=== PATIENT | female | born 1965 | race Hispanic/Latino ===

== ENCOUNTER 2020-05-08 08:57 | Inpatient (IN) | payer BC, SELFPAY ==
[2020-05-08] MEDS ORDERED: ONDANSETRON 4 MG/2 ML INJ IV PRN (09:31)
[2020-05-08] MEDS ORDERED: HYDROmorphone 1 MG/1 ML INJ IV PRN (09:31)
--- NOTE | 2020-05-08 09:32 | Anesthesia Day of Surgery ---
Anesthesia Day of Surgery - Day of Surgery Patient Examined: Yes Patient H&P Reviewed: Yes Patient is NPO: Yes
[2020-05-08] MEDS ORDERED: BACTERIOSTATIC SODIUM CHLORIDE 0.9% 30 ML VIAL INFILTRATI ONE (09:33)
--- NOTE | 2020-05-08 09:38 | Anesthesia Consultation ---
Anesthesia Consult and Med Hx Date of service: 05/08/20 - Airway Anesthetic Teeth Evaluation: Crowns ROM Head & Neck: Adequate Mental/Hyoid Distance: Adequate Mallampati Class: Class II Intubation Access Assessment: Good - Pre-Operative Health Status ASA Pre-Surgery Classification: ASA2 Proposed Anesthetic Plan: General - Pre-Anesthesia Comment Pre-Anesthesia Comments: PONV once - Pulmonary Hx Smoking: Yes (STOPPED 2002) Hx Respiratory Symptoms: No (+2FS) Hx Sleep Apnea: No (PATRICIA PRE SCREEN LOW RISK) - Cardiovascular System Hx Hypertension: No Hx Heart Murmur: No - Central Nervous System Hx Back Pain: Yes (NECK AND BACK PAIN) Hx Psychiatric Problems: Yes (Anxiety/Depression) - Gastrointestinal Hx Gastroesophageal Reflux Disease: Yes - Endocrine Hx Renal Disease: Yes (Stones) Hx Liver Disease: Yes (Fatty liver) Hx Insulin Dependent Diabetes: Yes (Type 1 on Insulin pump) - Hematic Hx Anemia: No - Other Systems Hx Alcohol Use: Yes (OCCASIONALLY) Hx Substance Use: No Hx Cancer: No - Additional Comments Anesthesia Medical History Comments: Diabetic retinopathy
[2020-05-08] MEDS: LACTATED RINGERS 1,000 ML IV SCH (10:00)
[2020-05-08] MEDS ORDERED: FAMOTIDINE 20 MG TAB PO NR (10:00)
[2020-05-08] MEDS ORDERED: ceFAZolin/STERILE WATER 2 GM/20 ML SYRINGE IV NR (10:00)
[2020-05-08] MEDS ORDERED: MIDAZOLAM 2 MG/2 ML INJ IV NR ×2 (10:00→13:23)
[2020-05-08] MEDS ORDERED: ONDANSETRON 4 MG/2 ML INJ ONE (10:42)
[2020-05-08] MEDS ORDERED: propofoL 200 MG/20 ML VIAL IV ONE (10:42)
[2020-05-08] MEDS ORDERED: LIDOCAINE MPF (2%) 20 MG/1 ML VIAL 5 ML ONE (10:42)
[2020-05-08] MEDS ORDERED: fentaNYL 100 MCG/2 ML INJ ONE ×2 (10:42→17:57)
[2020-05-08] MEDS ORDERED: PHENYLEPHRINE/NS 1,000 MCG/10 ML SYRINGE (OR USE) IV ONE (10:42)
[2020-05-08] MEDS ORDERED: dexAMETHasone 20 MG/5 ML VIAL ONE (10:42)
[2020-05-08] MEDS ORDERED: GLYCOPYRROLATE 0.4 MG/2 ML INJ ONE ×2 (10:42→11:00)
[2020-05-08] MEDS ORDERED: ROCURONIUM 50 MG/5 ML INJ IV ONE (11:00)
[2020-05-08] MEDS ORDERED: NEOSTIGMINE 10MG/10 ML INJ MDV ONE (11:00)
[2020-05-08] MEDS ORDERED: LIDOCAINE 2% UROJECT 10 ML JELLY ONE (11:25)
[2020-05-08] MEDS ORDERED: IOHEXOL 300 MG/ML 50ML IV ONE (11:39)
[2020-05-08] MEDS ORDERED: WATER FOR IRRIG STERILE 2000 ML IR ONE (11:40)
--- NOTE | 2020-05-08 12:21 | Post Operative Note ---
Date of procedure: 05/08/20 Pre-op diagnosis: r upper stone stricture Post-op diagnosis: same Procedure: cysto ureteroscopy attemptrd stent Anesthesia: PATRICK Surgeon: ZOHAIB CUNNINGHAM Estimated blood loss: none Pathology: none Condition: stable Disposition: PACU
[2020-05-08] MEDS: HYDROmorphone 1 MG/1 ML INJ IV PRN ×4 (12:45→13:15)
--- NOTE | 2020-05-08 12:47 | Event Note ---
Date: 05/08/20 Contacted regarding need for possible nephrostomy tube and ureteral stent placed through an antegrade approach. Ordered CT scan of the abdomen pelvis without contrast. I will discuss with patient when she wakes up.
[2020-05-08] MEDS ORDERED: MORPHINE 2 MG/1 ML INJ ONE ×3 (13:15→13:31)
[2020-05-08] MEDS: MORPHINE 2 MG/1 ML INJ IV PRN ×3 (13:20→13:40)
[2020-05-08] MEDS: MORPHINE 4 MG/1 ML INJ IV PRN ×3 (14:00→15:30)
--- NOTE | 2020-05-08 14:19 | Cat Scan Report ---
CT ABDOMEN AND PELVIS WITHOUT CONTRAST INDICATION / CLINICAL INFORMATION: hydronephrosis, possible PCN/ureteral stent. TECHNIQUE: Axial CT images were obtained through the abdomen and pelvis without IV contrast. All CT scans at this location are performed using CT dose reduction for ALARA by means of automated exposure control. COMPARISON: None available. FINDINGS: LOWER CHEST: Bibasilar volume loss. LIVER: No significant abnormality GALLBLADDER/BILIARY TREE: No significant abnormality PANCREAS: No significant abnormality SPLEEN: No significant abnormality ADRENALS: No significant abnormality RIGHT KIDNEY: There is residual contrast and gas within the right renal collecting system/ureter with moderate hydronephrosis. 5 mm calcification is demonstrated within the proximal right ureter. LEFT KIDNEY: 5 mm and 3 mm calculi are present within the left renal calyces. No ureteral calculus or hydronephrosis. URINARY BLADDER: There is gas within the bladder related to recent instrumentation. Bladder is not fu rther characterized due to decompression. REPRODUCTIVE ORGANS: Postoperative changes of tubal ligation. There is endometrial fluid/thickening, which may be physiologic. STOMACH / SMALL BOWEL: Stomach and small bowel are normal in caliber. No evidence of bowel inflammati on. COLON: The colon is unremarkable. The appendix is normal in caliber. LYMPH NODES: No significant adenopathy. VASCULATURE: Mild atherosclerotic calcification without acute abnormality. OTHER: No free air, free fluid, or focal fluid collection is identified. SKELETAL SYSTEM: No acute osseous findings. IMPRESSION: 1. Residual contrast and gas within the right renal collecting system/ureter with moderate hydronephr osis and 5 mm stone in the proximal right ureter. No additional ureteral calculus is detected. 2. Left nephrolithiasis without ureteral calculus or hydronephrosis. 3. Endometrial fluid/thickening, which may be physiologic. Recommend correlation with patient's menst rual status and consider further evaluation with pelvic ultrasound, as indicated. Signer Name: Ruben Henson MD Signed: 05/08/2020 2:14 PM Workstation Name: [id number]
--- NOTE | 2020-05-08 14:40 | Fluoroscopy Report ---
Right retrograde ureterogram INDICATION: Right flank pain IMPRESSION: Multiple fluoroscopic images were obtained following cannulation of the right ureter with postcontrast injection. No leak identified. Fluoroscopy time: 5.2 minutes. Fluoroscopic images: 9. Signer Name: Tanner Cerrato MD Signed: 05/08/2020 2:35 PM Workstation Name: [id number]
[2020-05-08] MEDS ORDERED: MORPHINE 4 MG/1 ML INJ IV PRN (14:57)
--- NOTE | 2020-05-08 15:23 | Operative Report ---
PREOPERATIVE DIAGNOSIS: Right upper ureteral stone. POSTOPERATIVE DIAGNOSES: Right upper ureteral stone with distal ureteral narrowing. PROCEDURES: Cystoscopy, right retrograde attempted stent, right ureteroscopy. SURGEON: Dr. Delgado. ANESTHESIA: General. FINDINGS: This is a woman with severe pain, right flank. Stone was not well seen on x-ray and looks quite small. She now presents for treatment. DESCRIPTION OF PROCEDURE: The patient was brought to the operating room and placed in the operating table. Following induction of anesthesia, placed in lithotomy position, prepped and draped in the usual sterile fashion. Cystourethroscopy showed no bladder lesions. Retrograde showed a tortuous ureter at the level of the stone with almost 2 twists. We were able to get a stent and straighten out the ureter surprisingly. We were able to get the ureteral access inner core to straighten it out and placed 2 wires in the kidney. The stone was quite high, so there was not that much wire above the stone. At this point, we took one wire over the ureteroscope and we were able to see the stone. We were about to start lasering and we saw that the other wire migrated a little distally. The ureter almost snapped to a twist. We could not see the stone anymore. It was almost like there was a pocket. It was not safe to keep pushing. We tried to inject dye to see if it would open up, but the ureter almost twisted like a turn. We therefore then stopped the procedure. I spoke to ____, I think the safest thing would be a percutaneous nephrostomy and placed it from above because the ureter twisted closed and no dye even would get above it. There was no extravasation. We did not want to perforate. I showed the pictures to the on the CD and he understands and I think the safest thing is to place an antegrade stent and let this grow off and then we can go back and laser the stone. PLAN: We will get a CT scan and a nephrostomy tube. JOB# [id number] MEGAN/ANGELA
[2020-05-08 15:55] LABS: Basophils % (Auto) 0.3 % (0.0-1.8); Eosinophils % (Auto) 0.2 % (0.0-4.3); Hematocrit 37.5 % (30.3-42.9); Hemoglobin 12.8 gm/dl (10.1-14.3); Lymphocytes # (Auto) 0.8 K/mm3 (1.2-5.4); Lymphocytes % (Auto) 8.2 % (13.4-35.0); Mean Corpuscular HGB Conc 34 % (30-34); Mean Corpuscular Volume 96 fl (79-97); Monocytes # (Auto) 0.5 K/mm3 (0.0-0.8); Monocytes % (Auto) 5.5 % (0.0-7.3); Platelet Count 299 K/mm3 (140-440); Red Blood Count 3.93 M/mm3 (3.65-5.03); Red Cell Distribution Width 13.7 % (13.2-15.2)
[2020-05-08 16:07] LABS: Partial Thromboplastin Time 26.9 Sec. (24.2-36.6)
[2020-05-08 16:09] LABS: Blood Urea Nitrogen 10 mg/dL (7-17); Calcium 8.7 mg/dL (8.4-10.2); Hemolysis Index 3
[2020-05-08 16:13] LABS: BUN/Creatinine Ratio 14
[2020-05-08] MEDS ORDERED: SODIUM CHLORIDE IRRI 500 ML 500 ML IR ONE (16:18)
[2020-05-08] MEDS ORDERED: LIDOCAINE (2%) 20 MG/1 ML VIAL 20 ML MDV INFILTRATI ONE (16:19)
--- NOTE | 2020-05-08 17:01 | Consultation ---
History of Present Illness - Reason for Consult Consult date: 05/08/20 Right hydronephrosis Requesting physician: ZOHAIB CUNNINGHAM - History of Present Illness 55-year-old female with past medical history of renal calculi who underwent an attempted ureteral stent placement and attempted laser removal of the right ureteral obstructing stone. Unfortunately the procedure could not be completed due to inability to wire past the occlusive stone after the initial passage across the occlusive stone. Patient has severe right flank pain. Discussed nephrostomy tube placement with possible ureteral stent with both her and her over the phone. Past medical history and social history: Hx Smoking: Yes (STOPPED 2002) Hx Respiratory Symptoms: No (+2FS) Hx Sleep Apnea: No (PATRICIA PRE SCREEN LOW RISK) Hx Hypertension: No Hx Heart Murmur: No Hx Back Pain: Yes (NECK AND BACK PAIN) Hx Psychiatric Problems: Yes (Anxiety/Depression) Hx Gastroesophageal Reflux Disease: Yes Hx Renal Disease: Yes (Stones) Hx Liver Disease: Yes (Fatty liver) Hx Insulin Dependent Diabetes: Yes (Type 1 on Insulin pump) Hx Anemia: No Hx Alcohol Use: Yes (OCCASIONALLY) Hx Substance Use: No Hx Cancer: No History Comments: Diabetic retinopathy Past History Social history: smoking (History of) Family history: no significant family history Medications and Allergies Allergies Allergy/AdvReac Type Severity Reaction Status Date / Time atorvastatin [From Lipitor] Allergy MUSCLE PAIN Verified 05/05/20 17:40 ezetimibe [From Zetia] Allergy JOINT PAIN Verified 05/05/20 17:40 meperidine [From Demerol] Allergy AGITATION Verified 05/05/20 17:40 , HALLUCINATIONS Home Medications Medication Instructions Recorded Confirmed Last Taken Type Ibuprofen [Motrin] 1 - 4 mg PO Q6H PRN 10/13/15 05/05/20 10/13/15 History Insulin Aspart (Nf) [NovoLOG 100 45 - 50 units SUB-Q CONT 10/13/15 05/08/20 05/07/20 21:30 History UNITS/ML VIAL] Sertraline HCl 100 mg PO DAILY 10/13/15 05/08/20 05/07/20 09:00 History Tamsulosin [Flomax] 0.4 mg PO QDAY 10/13/15 05/08/20 05/07/20 21:00 History Ascorbic Acid [Vitamin C] 500 mg PO DAILY 03/07/2105/08/20 05/07/20 09:00 History Cholecalciferol Vit D3 [Vitamin D3 1,000 unit PO QDAY 05/05/20 05/08/20 05/07/20 09:00 History 1,000 UNIT TAB] Famotidine [Pepcid] 20 mg PO PRN PRN 05/05/20 05/08/20 05/07/20 09:00 History HYDROcodone/APAP 7.5-325 [Brady 1 each PO Q6HR PRN 05/05/20 05/08/20 05/07/20 21:30 History 7.5/325] Ondansetron HCl [Zofran] 4 mg PO PRN PRN 05/05/20 05/08/20 05/07/20 21:30 History cefUROXime [Ceftin] 250 mg PO Q12H 05/05/20 05/08/20 05/07/20 21:00 History Active Meds: Active Medications Cefazolin Sodium (Cefazolin/Sterile Water 2 Gm/20 Ml Syringe) 2 gm IV PREOP NR Stop: 05/08/20 21:00 Famotidine (Famotidine 20 Mg Tab) 20 mg PO PREOP NR Stop: 05/08/20 20:00 Last Admin: 05/08/20 10:00 Dose: 20 mg Documented by: Hydromorphone HCl (Hydromorphone 1 Mg/1 Ml Inj) 0.25 mg IV Q10MIN PRN PRN Reason: Pain, Moderate (4-6) Stop: 05/08/20 23:00 Lactated Ringer's (Lactated Ringers) 1,000 mls @ 125 mls/hr IV DIRECT MARJ Last Admin: 05/08/20 10:00 Dose: 125 mls/hr Documented by: Midazolam HCl (Midazolam 2 Mg/2 Ml Inj) 2 mg IV PREOP NR Stop: 05/08/20 23:59 Morphine Sulfate (Morphine 4 Mg/1 Ml Inj) 4 mg IV Q10MIN PRN PRN Reason: Pain , Severe (7-10) Stop: 05/08/20 23:00 Last Admin: 05/08/20 15:30 Dose: 4 mg Documented by: Morphine Sulfate (Morphine 2 Mg/1 Ml Inj) 2 mg IV Q10MIN PRN PRN Reason: Pain, Moderate (4-6) Stop: 05/08/20 23:00 Last Admin: 05/08/20 13:40 Dose: 2 mg Documented by: Ondansetron HCl (Ondansetron 4 Mg/2 Ml Inj) 4 mg IV ONCE PRN PRN Reason: Nausea And Vomiting Stop: 05/08/20 20:00 Review of Systems All systems: negative (see HPI) Exam - Constitutional Vitals: Temp Pulse Resp BP Pulse Ox 97.8 F 83 16 154/63 98 05/08/20 13:00 05/08/20 15:30 05/08/20 15:30 05/08/20 15:30 05/08/20 15:30 General appearance: Present: mild distress (right flank pain) - EENT Eyes: Present: EOM intact ENT: hearing intact - Neck Neck: Present: supple - Respiratory Respiratory effort: normal - Extremities Extremities: normal temperature, normal color - Abdominal General gastrointestinal: Present: soft, tender (right CVT) - Psychiatric Psychiatric: appropriate mood/affect, cooperative Results - Labs CBC & Chem 7: 05/08/20 15:32 05/08/20 15:32 Labs: Abnormal lab results 05/08/20 05/08/20 05/08/20 Range/Units 09:38 14:03 15:32 MCH 33 H (28-32) pg Lymph % (Auto) 8.2 L (13.4-35.0) % Lymph # (Auto) 0.8 L (1.2-5.4) K/mm3 Seg Neutrophils % 85.8 H (40.0-70.0) % Seg Neutrophils # 8.0 H (1.8-7.7) K/mm3 Sodium (137-145) mmol/L Glucose (65-100) mg/dL POC Glucose 213 H 165 H (70-105) mg/dL 05/08/20 Range/Units 15:32 MCH (28-32) pg Lymph % (Auto) (13.4-35.0) % Lymph # (Auto) (1.2-5.4) K/mm3 Seg Neutrophils % (40.0-70.0) % Seg Neutrophils # (1.8-7.7) K/mm3 Sodium 136 L (137-145) mmol/L Glucose 177 H (65-100) mg/dL POC Glucose (70-105) mg/dL - Imaging and Cardiology CT scan - abdomen: report reviewed, image reviewed Assessment and Plan 55 year old female with right ureteral calculi who had unsuccessful cystoscopic approach to placing a right ureteral stent. Discussed right nephrostomy tube placement and right ureteral stent placement. R/B/A discussed.
[2020-05-08] MEDS: fentaNYL 100 MCG/2 ML INJ ONE ×2 (17:10→17:40)
[2020-05-08] MEDS: MIDAZOLAM 2 MG/2 ML INJ ONE ×4 (17:10→18:06)
--- NOTE | 2020-05-08 17:12 | Post Anesthesia Evaluation ---
- Post Anesthesia Evaluation Patient Participated: Yes Airway Patent: Yes Stable Respiratory Function: Yes Nausea/Vomiting: No Temp > 96.8F: Yes Pain Manageable: Yes Adequeate Hydration: Yes Anesthesia Complications: No Block Receding Appropriately: Not Applicable Patient on Ventilator: No
[2020-05-08] MEDS: LIDOCAINE 2%/EPINEPHRINE 1:100,000 VIAL (20 ML) INFILTRATI ONE ×2 (17:24→18:10)
[2020-05-08] MEDS ORDERED: LIDOCAINE 1%/EPINEPHRINE 1:100,000 VIAL (20 ML) INFILTRATI ONE (17:37)
--- NOTE | 2020-05-08 18:40 | Post Operative Note ---
Date of procedure: 05/08/20 Pre-op diagnosis: Left hydronephrosis Post-op diagnosis: same Findings: Left mid ureteral retrograde dissection and proximal uretereal twisting Procedure: 1. Ultrasound and fluoroscopic guided access of the renal pelvis 2. Ultrasound and fluoroscopic guided access of the left posterior calyx 3. Nephrostogram and urterography 4. Fluoroscopic guided placement 6 Fr x 26 cm urteral stent 5. Fluoroscopic guided placement of a 8 Fr left sided nephrostomy tube Anesthesia: local (w/ conscious sedation) Surgeon: ANTIONE PEREZ Estimated blood loss: minimal Condition: stable Disposition: floor
--- NOTE | 2020-05-08 18:40 | Operative Report ---
Operative Report Operative Report: EXAM: 1. Ultrasound guided access of the right renal pelvis 2. Ultrasound and fluoroscopic guided access of the right posterior calyx 3. Nephrostogram and urterography 4. Fluoroscopic guided placement 6 Fr x 26 cm urteral stent 5. Fluoroscopic guided placement of a 8 Fr left sided nephrostomy tube DATE: 05/08/2020 STITCH SEPARATOR: ANTIONE PEREZ MD INDICATION: Right-sided hydronephrosis with unsuccessful cystoscopic attempt at stent placement and stone removal in a patient who needs nephrostomy tube with worsening right flank pain. MEDICATIONS: Please see nursing report for full details. DEVICES: 6 Cymraes by 26 cm ureteral stent 8 Cymraes by 35 cm nephrostomy tube CONTRAST: Please see catheter report for contrast details. All contrast was injected within the collecting system. PROCEDURE: The risks, benefits, and alternatives were discussed with the patient; written informed consent was obtained. The patient's back was prepped and draped in a sterile fashion. The patient's puncture site was anesthetized with lidocaine. Under ultrasound guidance, the renal pelvis was accessed with a 21-gauge needle, urine was aspirated, and contrast was injected opacifying the collecting system. There was moderate hydronephrosis of the right renal collecting system. The proximal ureter appeared twisted, and the proximal to mid ureter was severely stenotic. There is retrograde dissections in the mid ureter. The distal ureter was spasmed. Under direct fluoroscopic guidance, the right lower pole posterior calyx was accessed with a 20-gauge needle. Urine was aspirated. 0.018 inch wire was passed into the collecting system. Needle was exchanged for a 6 Cym[place]es Accu stick system. 6 [place]ym[place]es Accustick system was advanced over the wire and passed into the collecting system. Wire, inner dilator and cannula were removed. Contrast was injected confirming position within the collecting system. Nephrostogram was performed demonstrating the above-mentioned findings. Wire and catheter was advanced through the transitional dilator and passed into the bladder. Wire was then exchanged for a 0.035 inch Amplatz wire. Transitional dilator and catheter removed and exchanged for 7 Cymraes sheath. Bentson wire was then passed as a josemanuel wire next to the Amplatz wire. Sheath was then removed and readvanced over the Amplatz wire. 6 Cymraes by 26 cm ureteral stent was then deployed over the 7 Cymraes sheath and Amplatz wire into the left ureter with pigtail loops in the bladder and renal pelvis. The sheath was removed during the implantation of the left ureteral stent and the wire was removed. 8 Cymraes nephrostomy tube was then advanced over the Bentson wire and this was deployed in the collecting system. Contrast was injected confirming contrast passing through the ureteral stent and into the bladder. At this point, the nephrostomy tube was then capped and secured with 2-0 E thilon. The nephrostomy tube will be managed by urology and will be removed at the time of the next stone extraction procedure. Bag was provided to the patient in case she required external drainage due to stent failure. Patient tolerated the procedure well. She was transferred to the floor in stable condition. FINDINGS: Please see procedure note above. IMPRESSION: 1. Successful placement of a right-sided nephrostomy tube. 2. Successful placement of a right ureteral stent.
[2020-05-08] MEDS ORDERED: NON-FORMULARY EACH (Ondansetron Hcl [Zofran] 4 MG Tablet) PO PRN (19:28)
[2020-05-08] MEDS ORDERED: HYDROcodone/ACETAMINOPHEN 7.5-325MG TAB PO PRN ×2 (19:28→19:35)
[2020-05-08] MEDS ORDERED: FAMOTIDINE 20 MG TAB PO PRN (19:28)
--- NOTE | 2020-05-08 19:28 | Consultation ---
Past History Social history: smoking (History of) Family history: no significant family history Medications and Allergies Allergies Allergy/AdvReac Type Severity Reaction Status Date / Time atorvastatin [From Lipitor] Allergy MUSCLE PAIN Verified 05/05/20 17:40 ezetimibe [From Zetia] Allergy JOINT PAIN Verified 05/05/20 17:40 meperidine [From Demerol] Allergy AGITATION Verified 05/05/20 17:40 , HALLUCINATIONS Home Medications Medication Instructions Recorded Confirmed Last Taken Type Ibuprofen [Motrin] 1 - 4 mg PO Q6H PRN 10/13/15 05/05/20 10/13/15 History Insulin Aspart (Nf) [NovoLOG 100 45 - 50 units SUB-Q CONT 10/13/15 05/08/20 05/07/20 21:30 History UNITS/ML VIAL] Sertraline HCl 100 mg PO DAILY 10/13/15 05/08/20 05/07/20 09:00 History Tamsulosin [Flomax] 0.4 mg PO QDAY 10/13/15 05/08/20 05/07/20 21:00 History Ascorbic Acid [Vitamin C] 500 mg PO DAILY 05/05/20 05/08/20 05/07/20 09:00 His tory Cholecalciferol Vit D3 [Vitamin D3 1,000 unit PO QDAY 05/05/20 05/08/20 05/07/20 09:00 History 1,000 UNIT TAB] Famotidine [Pepcid] 20 mg PO PRN PRN 05/05/20 05/08/20 05/07/20 09:00 History HYDROcodone/APAP 7.5-325 [[employer] 1 each PO Q6HR PRN 05/05/20 05/08/20 05/07/20 21:30 History 7.5/325] Ondansetron HCl [Zofran] 4 mg PO PRN PRN 05/05/20 05/08/20 05/07/20 21:30 History cefUROXime [Ceftin] 250 mg PO Q12H 05/05/20 05/08/20 05/07/20 21:00 History Active Meds: Active Medications Cefazolin Sodium (Cefazolin/Sterile Water 2 Gm/20 Ml Syringe) 2 gm IV PREOP NR Stop: 05/08/20 21:00 Famotidine (Famotidine 20 Mg Tab) 20 mg PO PREOP NR Stop: 05/08/20 20:00 Last Admin: 05/08/20 10:00 Dose: 20 mg Documented by: Hydromorphone HCl (Hydromorphone 1 Mg/1 Ml Inj) 0.25 mg IV Q10MIN PRN PRN Reason: Pain, Moderate (4-6) Stop: 05/08/20 23:00 Lactated Ringer's (Lactated Ringers) 1,000 mls @ 125 mls/hr IV DIRECT MARJ Last Admin: 05/08/20 10:00 Dose: 125 mls/hr Documented by: Midazolam HCl (Midazolam 2 Mg/2 Ml Inj) 2 mg IV PREOP NR Stop: 05/08/20 23:59 Morphine Sulfate (Morphine 4 Mg/1 Ml Inj) 4 mg IV Q10MIN PRN PRN Reason: Pain , Severe (7-10) Stop: 05/08/20 23:00 Last Admin: 05/08/20 15:30 Dose: 4 mg Documented by: Morphine Sulfate (Morphine 2 Mg/1 Ml Inj) 2 mg IV Q10MIN PRN PRN Reason: Pain, Moderate (4-6) Stop: 05/08/20 23:00 Last Admin: 05/08/20 13:40 Dose: 2 mg Documented by: Ondansetron HCl (Ondansetron 4 Mg/2 Ml Inj) 4 mg IV ONCE PRN PRN Reason: Nausea And Vomiting Stop: 05/08/20 20:00 Exam - Constitutional Vitals: Temp Pulse Resp BP Pulse Ox 98.0 F 99 H 14 135/63 99 05/08/20 19:00 05/08/20 19:15 05/08/20 19:15 05/08/20 19:15 05/08/20 19:15 Results - Labs CBC & Chem 7: 05/08/20 15:32 05/08/20 15:32 Labs: Abnormal lab results 05/08/20 05/08/20 05/08/20 Range/Units 09:38 14:03 15:32 MCH 33 H (28-32) pg Lymph % (Auto) 8.2 L (13.4-35.0) % Lymph # (Auto) 0.8 L (1.2-5.4) K/mm3 Seg Neutrophils % 85.8 H (40.0-70.0) % Seg Neutrophils # 8.0 H (1.8-7.7) K/mm3 Sodium (137-145) mmol/L Glucose (65-100) mg/dL POC Glucose 213 H 165 H (70-105) mg/dL 05/08/20 Range/Units 15:32 MCH (28-32) pg Lymph % (Auto) (13.4-35.0) % Lymph # (Auto) (1.2-5.4) K/mm3 Seg Neutrophils % (40.0-70.0) % Seg Neutrophils # (1.8-7.7) K/mm3 Sodium 136 L (137-145) mmol/L Glucose 177 H (65-100) mg/dL POC Glucose (70-105) mg/dL
[2020-05-08] MEDS ORDERED: DEXTROSE 50% IN WATER (25GM) 50 ML SYRINGE IV PRN (19:30)
[2020-05-08] MEDS ORDERED: ONDANSETRON 4 MG ODT TAB PO PRN (19:38)
--- NOTE | 2020-05-08 20:47 | History and Physical Report ---
History of Present Illness Date of admission: 05/08/20 19:21 Chief complaint: My side hurts. History of present illness: 55 YO Female with GERD, DM, LDD, Nepphrolithiasis admitted postoperatively S/P an attempted ureteral stent placement and attempted laser removal of the right ureteral obstructing stone. Patient seen and evaluated postoperatively and found to have an obstructing kidney stone complicated by pain. Patient admitted to medical floor due to increased risk of worsening symptoms. Interventional radiology team consulted. Patient denies fever, chills, chest pain, palpitati on, productive cough, skin rash, recent ill contacts, or known exposure to COVID-19. No prior admission for review. All medication listed at time of admission has been reconciled. Past History Past Medical History: diabetes, GERD Past Surgical History: No surgical history, Other (Reviewed) Social history: , lives with family. denies: smoking (History of), alcohol abuse, prescription drug abuse Family history: no significant family history Medications and Allergies Allergies Allergy/AdvReac Type Severity Reaction Status Date / Time atorvastatin [From Lipitor] Allergy MUSCLE PAIN Verified 05/05/20 17:40 ezetimibe [From Zetia] Allergy JOINT PAIN Verified 05/05/20 17:40 meperidine [From Demerol] Allergy AGITATION Verified 05/05/20 17:40 , HALLUCINATIONS Home Medications Medication Instructions Recorded Confirmed Last Taken Type Ibuprofen [Motrin] 1 - 4 mg PO Q6H PRN 10/13/15 05/05/20 10/13/15 History Insulin Aspart (Nf) [NovoLOG 100 45 - 50 units SUB-Q CONT 10/13/15 05/08/20 05/07/20 21:30 History UNITS/ML VIAL] Sertraline HCl 100 mg PO DAILY 10/13/15 05/08/20 05/07/20 09:00 History Tamsulosin [Flomax] 0.4 mg PO QDAY 10/13/15 05/08/20 05/07/20 21:00 History Ascorbic Acid [Vitamin C] 500 mg PO DAILY 05/05/20 05/08/20 05/07/20 09:00 History Cholecalciferol Vit D3 [Vitamin D3 1,000 unit PO QDAY 05/05/20 05/08/20 05/07/20 09:00 History 1,000 UNIT TAB] Famotidine [Pepcid] 20 mg PO PRN PRN 05/05/20 05/08/20 05/07/20 09:00 History HYDROcodone/APAP 7.5-325 [[place] 1 each PO Q6HR PRN 05/05/20 05/08/20 05/07/20 21:30 History 7.5/325] Ondansetron HCl [Zofran] 4 mg PO PRN PRN 05/05/20 05/08/20 05/07/20 21:30 History cefUROXime [Ceftin] 250 mg PO Q12H 05/05/20 05/08/20 05/07/20 21:00 History Active Meds: Active Medications Hydrocodone Bitart/Acetaminophen (Hydrocodone/Acetaminophen 7.5-325mg Tab) 1 each PO Q6HR PRN PRN Reason: Pain, Moderate (4-6) Ascorbic Acid (Ascorbic Acid 500 Mg Tab) 500 mg PO DAILY MARJ Cefazolin Sodium (Cefazolin/Sterile Water 2 Gm/20 Ml Syringe) 2 gm IV PREOP NR Stop: 05/08/20 21:00 Cholecalciferol (Cholecalciferol (Vit D3) 1000 Unit (25 Mcg) Tab) 1,000 unit PO QDAY MARJ Dextrose (Dextrose 50% In Water (25gm) 50 Ml Syringe) 50 ml IV Q30MIN PRN; Protocol PRN Reason: Hypoglycemia Famotidine (Famotidine 20 Mg Tab) 20 mg PO QDAY PRN PRN Reason: Indigestion Hydromorphone HCl (Hydromorphone 1 Mg/1 Ml Inj) 0.25 mg IV Q10MIN PRN PRN Reason: Pain, Moderate (4-6) Stop: 05/08/20 23:00 Lactated Ringer's (Lactated Ringers) 1,000 mls @ 125 mls/hr IV DIRECT MARJ Last Admin: 05/08/20 10:00 Dose: 125 mls/hr Documented by: Insulin Human Lispro (Insulin Lispro 100 Unit/Ml) 0 unit SUB-Q Q6HR MARJ; Protocol Midazolam HCl (Midazolam 2 Mg/2 Ml Inj) 2 mg IV PREOP NR Stop: 05/08/20 23:59 Morphine Sulfate (Morphine 2 Mg/1 Ml Inj) 2 mg IV Q10MIN PRN PRN Reason: Pain, Moderate (4-6) Stop: 05/08/20 23:00 Last Admin: 05/08/20 13:40 Dose: 2 mg Documented by: Ondansetron HCl (Ondansetron 4 Mg Odt Tab) 4 mg PO Q6H PRN PRN Reason: Nausea And Vomiting Sertraline HCl (Sertraline 100 Mg Tab) 100 mg PO DAILY [facility] Tamsulosin HCl (Tamsulosin 0.4 Mg Cap) 0.4 mg PO QDAY [facility] Review of Systems Constitutional: no weight loss, no weight gain, no fever, no chills Ears, nose, mouth and throat: no ear pain, no tinnitis, no nasal congestion Breasts: no change in shape, no mass Cardiovascular: no orthopnea, no palpitations, no edema, no syncope Respiratory: no cough, no hemoptysis, no shortness of breath Gastrointestinal: no vomiting, no diarrhea, no change in bowel habits, no coffee ground emesis Genitourinary Female: flank pain, no dysuria, no urgency, no stress incontinence Rectal: no pain, no incontinence, no bleeding Musculoskeletal: no neck stiffness, no shooting arm pain Integumentary: no rash, no sores, no wounds, no boils Neurological: no head injury, no weakness, no parathesias, no tingling, no seizures, no syncope Psychiatric: no anxiety, no sleep disturbances, no hypersomnia, no change in appetite, no change in libido Endocrine: no cold intolerance, no polyphagia, no polydipsia, no excessive sweating, no flushing Hematologic/Lymphatic: no easy bruising, no easy bleeding Allergic/Immunologic: no urticaria, no allergic rhinitis, no wheezing Exam - Constitutional Vitals: Temp Pulse Resp BP Pulse Ox 98.0 F 89 16 131/56 100 05/08/20 19:00 05/08/20 20:30 05/08/20 20:30 05/08/20 20:30 05/08/20 20:30 General appearance: Present: mild distress - EENT Eyes: Present: PERRL ENT: hearing intact, clear oral mucosa - Neck Neck: Present: supple, normal ROM - Respiratory Respiratory effort: normal Respiratory: bilateral: CTA - Cardiovascular Heart Sounds: Present: S1 & S2. Absent: rub, click - Extremities Extremities: pulses symmetrical, No edema Peripheral Pulses: within normal limits - Abdominal General gastrointestinal: Present: soft, non-tender, non-distended, normal bowel sounds Female genitourinary: Present: normal - Integumentary Integumentary: Present: clear, warm, dry - Musculoskeletal Musculoskeletal: gait normal, strength equal bilaterally - Psychiatric Psychiatric: appropriate mood/affect, intact judgment & insight - Neurologic Neurologic: CNII-XII intact, moves all extremities Results - Labs CBC & Chem 7: 05/08/20 15:32 05/08/20 15:32 Labs: Abnormal lab results 05/08/20 05/08/20 05/08/20 Range/Units 09:38 14:03 15:32 MCH 33 H (28-32) pg Lymph % (Auto) 8.2 L (13.4-35.0) % Lymph # (Auto) 0.8 L (1.2-5.4) K/mm3 Seg Neutrophils % 85.8 H (40.0-70.0) % Seg Neutrophils # 8.0 H (1.8-7.7) K/mm3 Sodium (137-145) mmol/L Glucose (65-100) mg/dL POC Glucose 213 H 165 H (70-105) mg/dL 05/08/20 Range/Units 15:32 MCH (28-32) pg Lymph % (Auto) (13.4-35.0) % Lymph # (Auto) (1.2-5.4) K/mm3 Seg Neutrophils % (40.0-70.0) % Seg Neutrophils # (1.8-7.7) K/mm3 Sodium 136 L (137-145) mmol/L Glucose 177 H (65-100) mg/dL POC Glucose (70-105) mg/dL Assessment and Plan - Patient Problems (1) Urinary obstruction Current Visit: Yes Status: Acute Plan to address problem: Interventional radiology consulted, urology consulted, bowel rest, IV fluid resuscitation therapy, pain control, supportive care. Further care as per interventional radiology/urology team. (2) Diabetes Current Visit: Yes Status: Acute Plan to address problem: Hypoglycemia protocol, sliding scale insulin therapy, Accu-Chek, (3) GERD (gastroesophageal reflux disease) Current Visit: Yes Status: Acute Qualifiers: Esophagitis presence: without esophagitis Qualified Code(s): K21.9 - Gastr o-esophageal reflux disease without esophagitis Plan to address problem: PPI therapy, supportive care. (4) DVT prophylaxis Current Visit: Yes Status: Acute Plan to address problem: SCDs bilateral extremities while in bed, patient is ambulatory.
[2020-05-09] MEDS ORDERED: METOCLOPRAMIDE 10 MG/2 ML INJ IV ONE (03:44)
[2020-05-09] MEDS: LACTATED RINGERS 1,000 ML IV SCH (03:51)
[2020-05-09 05:25] LABS: Basophils % (Auto) 0.2 % (0.0-1.8); Eosinophils % (Auto) 0.1 % (0.0-4.3); Lymphocytes # (Auto) 0.8 K/mm3 (1.2-5.4); Lymphocytes % (Auto) 7.7 % (13.4-35.0); Mean Corpuscular HGB Conc 33 % (30-34); Mean Corpuscular Volume 98 fl (79-97); Monocytes % (Auto) 9.8 % (0.0-7.3); Platelet Count 295 K/mm3 (140-440); Red Blood Count 3.99 M/mm3 (3.65-5.03); Red Cell Distribution Width 13.7 % (13.2-15.2)
[2020-05-09 05:46] LABS: Alanine Aminotransferase 13 units/L (7-56); Albumin 3.8 g/dL (3.9-5); Blood Urea Nitrogen 9 mg/dL (7-17); Calcium 8.7 mg/dL (8.4-10.2); Hemolysis Index 23
[2020-05-09 05:53] LABS: BUN/Creatinine Ratio 15
[2020-05-09] MEDS: INSULIN LISPRO 100 UNIT/ML SUB-Q SCH ×3 (06:40→12:45)
--- NOTE | 2020-05-09 09:49 | Progress Note ---
Assessment and Plan tube plugged has stent ok for discharge showed pics needs f/u stone lasered Subjective Date of service: 05/09/20 Principal diagnosis: ureteral stone stricture Objective - Constitutional Vitals: Vital Signs - 12hr 05/09/20 05/09/20 04:59 07:00 Temperature 99.1 F 99.1 F Pulse Rate 90 92 H Respiratory 18 16 Rate Blood Pressure 143/61 157/64 O2 Sat by Pulse 98 97 Oximetry General appearance: Present: no acute distress - Respiratory Respiratory effort: normal Extremities: no ischemia - Gastrointestinal General gastrointestinal: Present: non-distended - Labs CBC & Chem 7: 05/09/20 04:43 05/09/20 04:43 Labs: Abnormal lab results 05/08/20 05/08/20 05/08/20 Range/Units 14:03 15:32 15:32 MCV (79-97) fl MCH 33 H (28-32) pg Lymph % (Auto) 8.2 L (13.4-35.0) % [place] % (Auto) (0.0-7.3) % Lymph # (Auto) 0.8 L (1.2-5.4) K/mm3 [place] # (Auto) (0.0-0.8) K/mm3 Seg Neutrophils % 85.8 H (40.0-70.0) % Seg Neutrophils # 8.0 H (1.8-7.7) K/mm3 Sodium 136 L (137-145) mmol/L Glucose 177 H (65-100) mg/dL POC Glucose 165 H (70-105) mg/dL Albumin (3.9-5) g/dL 05/08/20 05/09/20 05/09/20 Range/Units 23:05 04:43 04:43 MCV 98 H (79-97) fl MCH 33 H (28-32) pg Lymph % (Auto) 7.7 L (13.4-35.0) % [place] % (Auto) 9.8 H (0.0-7.3) % Lymph # (Auto) 0.8 L (1.2-5.4) K/mm3 [place] # (Auto) 1.0 H (0.0-0.8) K/mm3 Seg Neutrophils % 82.2 H (40.0-70.0) % Seg Neutrophils # 8.0 H (1.8-7.7) K/mm3 Sodium 134 L (137-145) mmol/L Glucose 184 H (65-100) mg/dL POC Glucose 203 H (70-105) mg/dL Albumin 3.8 L (3.9-5) g/dL 05/09/20 Range/Units 06:22 MCV (79-97) fl MCH (28-32) pg Lymph % (Auto) (13.4-35.0) % [place] % (Auto) (0.0-7.3) % Lymph # (Auto) (1.2-5.4) K/mm3 [place] # (Auto) (0.0-0.8) K/mm3 Seg Neutrophils % (40.0-70.0) % Seg Neutrophils # (1.8-7.7) K/mm3 Sodium (137-145) mmol/L Glucose (65-100) mg/dL POC Glucose 178 H (70-105) mg/dL Albumin (3.9-5) g/dL Medications & Allergies - Medications Allergies/Adverse Reactions: Allergies atorvastatin [From Lipitor] Allergy (Verified 05/05/20 17:40) MUSCLE PAIN ezetimibe [From Zetia] Allergy (Verified 05/05/20 17:40) JOINT PAIN meperidine [From Demerol] Allergy (Verified 05/05/20 17:40) AGITATION , HALLUCINATIONS Home Medications: Home Medications Medication Instructions Recorded Confirmed Last Taken Type Ibuprofen [Motrin] 1 - 4 mg PO Q6H PRN 10/13/15 05/05/20 10/13/15 History Insulin Aspart (Nf) [NovoLOG 100 45 - 50 units SUB-Q CONT 10/13/15 05/08/20 05/07/20 21:30 History UNITS/ML VIAL] Sertraline HCl 100 mg PO DAILY 10/13/15 05/08/20 05/07/20 09:00 History Tamsulosin [Flomax] 0.4 mg PO QDAY 10/13/15 05/08/20 05/07/20 21:00 History Ascorbic Acid [Vitamin C] 500 mg PO DAILY 05/05/20 05/08/20 05/07/20 09:00 History Cholecalciferol Vit D3 [Vitamin D3 1,000 unit PO QDAY 05/05/20 05/08/20 05/07/20 09:00 History 1,000 UNIT TAB] Famotidine [Pepcid] 20 mg PO PRN PRN 05/05/20 05/08/20 05/07/20 09:00 History HYDROcodone/APAP 7.5-325 [[place] 1 each PO Q6HR PRN 05/05/20 05/08/20 05/07/20 21:30 History 7.5/325] Ondansetron HCl [Zofran] 4 mg PO PRN PRN 05/05/20 05/08/20 05/07/20 21:30 History cefUROXime [Ceftin] 250 mg PO Q12H 05/05/20 05/08/20 05/07/20 21:00 History Active Medications: Generic Name Dose Route Start Last Admin Trade Name Freq PRN Reason Stop Dose Admin Hydrocodone Bitart/Acetaminophen 1 each 05/08/20 19:35 Hydrocodone/Acetaminophen 7.5-325mg Tab PO Q6HR PRN Pain, Moderate (4-6) Ascorbic Acid 500 mg 05/09/20 10:00 05/09/20 09:04 Ascorbic Acid 500 Mg Tab PO 500 mg DAILY MARJ Administration Cholecalciferol 1,000 unit 05/09/20 10:00 05/09/20 09:03 Cholecalciferol (Vit D3) 1000 Unit (25 Mcg) Tab PO 1,000 unit QDAY MARJ Administration Dextrose 50 ml 05/08/20 19:30 Dextrose 50% In Water (25gm) 50 Ml Syringe IV Q30MIN PRN Hypoglycemia Protocol Famotidine 20 mg 05/08/20 19:28 Famotidine 20 Mg Tab PO QDAY PRN Indigestion Lactated Ringer's 1,000 mls @ 125 mls/hr 05/08/20 09:45 05/09/20 03:51 Lactated Ringers IV 125 mls/hr DIRECT MARJ Administration Insulin Human Lispro 0 unit 05/09/20 00:00 05/09/20 06:40 Insulin Lispro 100 Unit/Ml SUB-Q 2 unit Q6HR MARJ Administration Protocol Ondansetron HCl 4 mg 05/08/20 19:38 05/08/20 23:16 Ondansetron 4 Mg Odt Tab PO 4 mg Q6H PRN Administration Nausea And Vomiting Sertraline HCl 100 mg 05/09/20 10:00 05/09/20 09:04 Sertraline 100 Mg Tab PO 100 mg DAILY MARJ Administration Tamsulosin HCl 0.4 mg 05/09/20 10:00 05/09/20 09:04 Tamsulosin 0.4 Mg Cap PO 0.4 mg QDAY MARJ Administration
[2020-05-09] MEDS ORDERED: TAMSULOSIN 0.4 MG CAP PO SCH (10:00)
[2020-05-09] MEDS ORDERED: SERTRALINE 100 MG TAB PO SCH (10:00)
[2020-05-09] MEDS ORDERED: CHOLECALCIFEROL (VIT D3) 1000 UNIT (25 mcg) TAB PO SCH (10:00)
[2020-05-09] MEDS ORDERED: ASCORBIC ACID 500 MG TAB PO SCH (10:00)
[2020-05-09 11:53] VITALS: BP 118/54
--- NOTE | 2020-05-09 12:02 | Discharge Summary ---
Providers - Providers Date of Admission: 05/08/20 19:21 Date of discharge: 05/09/20 Attending physician: TINO ESCOBAR 05/08/20 20:50 Consult to Physician [CONS] Routine Comment: Consulting Provider: ANTIONE PEREZ Physician Instructions: Reason For Exam: Urinary obstruction 05/08/20 20:51 Consult to Physician [CONS] Routine Comment: Consulting Provider: ZOHAIB CUNNINGHAM Physician Instructions: Reason For Exam: Urinary obstruction Primary care physician: ANTHONY FARMER Hospitalization Disposition: CO- TO HOME OR SELFCARE Time spent for discharge: 34 minutes Core Measure Documentation - Palliative Care Palliative Care/ Comfort Measures: Not Applicable Exam - Constitutional Vitals: Temp Pulse Resp BP Pulse Ox 98.1 F 89 16 118/54 97 05/09/20 11:48 05/09/20 11:48 05/09/20 11:48 05/09/20 11:48 05/09/20 11:48 Plan Activity: advance as tolerated Weight Bearing Status: Non-Weight Bearing Diet: low fat, low salt Follow up with: ANTHONY FARMER MD [Primary Care Provider] - 7 Days ZOHAIB CUNNINGHAM MD [Staff Physician] - 7 Days
== END 2020-05-09 17:50 | disposition home or self-care (01) | DRG 694 ==
LOC: OR 08:57 → 3A 19:21 → 3B-SURG 20:46
PROVIDERS: ADMIT Internal Medicine; ATTEND Internal Medicine
PROC: 0TJ98ZZ Inspection of Ureter, Via Natural or Artificial Opening Endoscopic (ICD-10-PCS; principal; 2020-05-08)
PROC: BT111ZZ Fluoroscopy of Right Kidney using Low Osmolar Contrast (ICD-10-PCS; 2020-05-08)
PROC: 0T9330Z Drainage of Right Kidney Pelvis with Drainage Device, Percutaneous Approach (ICD-10-PCS; 2020-05-08)
PROC: 0T763DZ Dilation of Right Ureter with Intraluminal Device, Percutaneous Approach (ICD-10-PCS; 2020-05-08)
DX: N13.2 Hydronephrosis with renal and ureteral calculous obstruction (principal); F32.9 Major depressive disorder, single episode, unspecified; F41.9 Anxiety disorder, unspecified; N13.1 Hydronephrosis with ureteral stricture, not elsewhere classified; K21.9 Gastro-esophageal reflux disease without esophagitis; E10.319 Type 1 diabetes mellitus with unspecified diabetic retinopathy without macular edema; Z88.8 Allergy status to other drugs, medicaments and biological substances; Z87.891 Personal history of nicotine dependence
CPT/HCPCS: 36415; 50695; 74176; 74420; 80048; 80053; 81025; 82962; 85025; 85610; 85730; G0378; A4217; C1726; C1729; C1769; C1894; C2617; J0690; J1100; J1170; J1815; J2250; J2270; J2370; J2405; J2704; J2710; J2765; J3010; J7120; Q0162; Q9967

== ENCOUNTER 2020-05-24 06:05 | Day surgery (SDC) | payer BC ==
[~2020-05-24 06:05] MED LIST: LACTATED RINGERS 1,000 ML IV SCH; MIDAZOLAM 2 MG/2 ML INJ IV NR
[2020-05-24] MEDS ORDERED: BACTERIOSTATIC SODIUM CHLORIDE 0.9% 30 ML VIAL INFILTRATI ONE (06:56)
[2020-05-24] MEDS ORDERED: propofoL 200 MG/20 ML VIAL IV ONE (07:11)
--- NOTE | 2020-05-24 07:33 | Anesthesia Consultation ---
Anesthesia Consult and Med Hx Date of service: 05/24/20 - Airway Anesthetic Teeth Evaluation: Good ROM Head & Neck: Adequate Mental/Hyoid Distance: Adequate Mallampati Class: Class II Intubation Access Assessment: Probably Good - Pre-Operative Health Status ASA Pre-Surgery Classification: ASA3 - Pulmonary Hx Smoking: Yes (STOPPED 2002) Hx Respiratory Symptoms: No (+2FS) Hx Sleep Apnea: (PATRICIA PRE SCREEN LOW RISK) - Central Nervous System CVA: No Hx Back Pain: Yes (NECK AND BACK PAIN) Hx Psychiatric Problems: Yes - Gastrointestinal Hx Gastroesophageal Reflux Disease: Yes - Endocrine Hx Renal Disease: Yes (Stones) Hx Liver Disease: Yes (Fatty liver) Hx Insulin Dependent Diabetes: Yes (Type 1 on Insulin pump) - Other Systems Hx Alcohol Use: Yes (OCCASIONALLY) Hx Cancer: No
--- NOTE | 2020-05-24 07:34 | Anesthesia Day of Surgery ---
Anesthesia Day of Surgery - Day of Surgery Patient Examined: Yes Patient H&P Reviewed: Yes Patient is NPO: Yes
[2020-05-24 07:53] LABS: BUN/Creatinine Ratio 19; Blood Urea Nitrogen 15 mg/dL (7-17); Hemolysis Index 7
[2020-05-24] MEDS ORDERED: fentaNYL 100 MCG/2 ML INJ IV PRN (07:54)
[2020-05-24] MEDS ORDERED: ONDANSETRON 4 MG/2 ML INJ IV PRN (07:54)
[2020-05-24] MEDS ORDERED: HYDROcodone/ACETAMINOPHEN 5-325 MG TAB PO PRN (07:54)
[2020-05-24] MEDS ORDERED: LIDOCAINE MPF (2%) 20 MG/1 ML VIAL 5 ML ONE (07:59)
[2020-05-24] MEDS ORDERED: HYDROmorphone 1 MG/1 ML INJ ONE (07:59)
[2020-05-24] MEDS ORDERED: ceFAZolin/STERILE WATER 2 GM/20 ML SYRINGE IV NR (08:00)
[2020-05-24] MEDS ORDERED: SCOPOLAMINE TRANSDERMAL PATCH 72 HR TD NR (08:00)
[2020-05-24] MEDS ORDERED: WATER FOR IRRIG STERILE 2000 ML IR ONE (08:30)
[2020-05-24] MEDS ORDERED: KETOROLAC 30 MG/1 ML INJ ONE (08:54)
[2020-05-24] MEDS ORDERED: ONDANSETRON 4 MG/2 ML INJ ONE (08:54)
--- NOTE | 2020-05-24 09:18 | Operative Report ---
PREOPERATIVE DIAGNOSIS: Impacted right upper ureteral stone with narrowing. POSTOPERATIVE DIAGNOSIS: Impacted right upper ureteral stone with narrowing. PROCEDURE: Right ureteroscopy, laser of stone, extraction of stone. SURGEON: Rashaad Delgado MD ANESTHESIA: General. FINDINGS: This is a woman with an impacted stone with a very tight ureter that had to have percutaneous nephrostomy and antegrade stent because the ureter twisted. She now presents for second stage ureteroscopy. DESCRIPTION OF PROCEDURE: The patient was brought to the operating room and placed on the operating table. Following induction of anesthesia, placed in lithotomy position, prepped and draped in usual sterile fashion. A wire coiled alongside the stent in the kidney. The stent was withdrawn and a second wire was placed. Ureteroscopy showed the stone, which was embedded in the medial wall. Once we started lasering, it broke up into many pieces. They went up in the kidney. We extracted one of them. The patient tolerated the procedure well. A 7-[place] double-J 22-cm coiled in the kidney and bladder and we removed the nephrostomy tube. The patient tolerated the procedure well, no complications, brought to recovery in stable condition. JOB# [id number] MEGAN/ANGELA
--- NOTE | 2020-05-24 09:54 | Post Operative Note ---
Date of procedure: 05/24/20 Pre-op diagnosis: ureteral stone Post-op diagnosis: same Findings: r ureteral stone Procedure: r ureteroscopy stent Anesthesia: GETA Surgeon: ZOHAIB CUNNINGHAM Estimated blood loss: none Pathology: list (stone) Specimen disposition: to lab Condition: stable Disposition: PACU
--- NOTE | 2020-05-24 09:55 | Discharge Summary ---
Short Stay Discharge Plan Activity: other (no straaining ) Weight Bearing Status: Full Weight Bearing Diet: low fat, low cholesterol Special Instructions: other (inc fluids ) Follow up with: ANTHONY FARMER MD [Primary Care Provider] - 7 Days ZOHAIB CUNNINGHAM MD [Staff Physician] - 7 Days Forms: Outpatient Surgery DC Inst.
[2020-05-24 10:50] VITALS: BP 134/62
--- NOTE | 2020-05-24 11:03 | Post Anesthesia Evaluation ---
- Post Anesthesia Evaluation Patient Participated: Yes Airway Patent: Yes Stable Respiratory Function: Yes Nausea/Vomiting: No Temp > 96.8F: Yes Pain Manageable: Yes Adequeate Hydration: Yes Anesthesia Complications: No Other Comments: Reported mild "tingling" of the tip of the tongue. Explained to patient may be associated with LMA placement during surgery and that symptoms should resolved over the next several days to weeks.
--- NOTE | 2020-05-26 12:02 | XRay Report ---
INTRAOPERATIVE FLUOROSCOPY: RETROGRADE UROGRAPHY INDICATION / CLINICAL INFORMATION: CALCULUS OF KIDNEY. TECHNIQUE: Intraoperative spot images were obtained during the procedure. FINDINGS: Images show right ureteral stent in place as well as right nephrostomy tube. Omnipaque 300 utilized. See operative/procedure note by performing physician for full details. Fluoroscopy Time: 0.5 minutes. Fluoroscopy Images: 4. Signer Name: Logan Dougherty MD Signed: 05/24/2020 11:09 AM Workstation Name: [id number]
== END 2020-05-24 06:06 | disposition home or self-care (01) ==
LOC: OR 06:05
PROVIDERS: ATTEND Urology
DX: N20.1 Calculus of ureter (principal); Z79.899 Other long term (current) drug therapy; Z88.8 Allergy status to other drugs, medicaments and biological substances; Z79.4 Long term (current) use of insulin; K21.9 Gastro-esophageal reflux disease without esophagitis; E11.36 Type 2 diabetes mellitus with diabetic cataract; F41.9 Anxiety disorder, unspecified; E78.00 Pure hypercholesterolemia, unspecified; Z98.51 Tubal ligation status; Z98.891 History of uterine scar from previous surgery; Z98.890 Other specified postprocedural states
CPT/HCPCS: 36415; 52356; 74018; 80048; 81025; 82962; A4217; C1758; C1769; C2617; J0690; J1170; J1885; J2250; J2405; J2704; J7120; Q9967; 74420